=== PATIENT | male | born 1990 | race Caucasian/White ===

== ENCOUNTER 2019-12-27 15:15 | Emergency (ER) | payer OTHER, SELFPAY ==
--- NOTE | ~2019-12-27 | XR_ITS ---
EXAMINATION: XR abdomen/kub 1V DATE: 12/27/2019 18:47 INDICATION: Left flank pain. Urolithiasis. TECHNIQUE: A supine view of the abdomen on 2 radiographs was obtained. COMPARISON: CT abdomen and pelvis 12/27/2019 FINDINGS: There are no dilated loops of bowel. There is a phlebolith in left pelvis. There is a 6 mm stone in proximal left ureter. There are greater than 20 stones in right kidney measuring up to 8 mm. IMPRESSION: 1. Stones in the right kidney and proximal left ureter. Reviewed, dictated and finalized at location A.
--- NOTE | ~2019-12-27 | CT_ITS ---
EXAMINATION: CT abdomen pelvis wo con DATE: 12/27/2019 16:00 INDICATION: Left flank pain. History of kidney stones. TECHNIQUE: Computed tomography (CT) of the abdomen and pelvis was performed without intravenous contr ast. The dose-length product was 419.16 mGy-cm. Automated exposure control and iterative reconstructi on technique were employed. COMPARISON: CT dated 09/18/2007 FINDINGS: Lung bases are unremarkable. Heart size normal. No significant pleural or pericardial effus ion. There are clustered stones in the lower pole of the right kidney. No significant hydronephrosis. Ther e is an 8 mm proximal left ureteral stone with mild-moderate hydronephrosis. There is a punctate 1-2 mm nonobstructing left renal stone. Small fat-containing umbilical hernia. There is a fat-containing left inguinal hernia. No lymphadenopathy. No significant vascular abnormality. The liver, spleen, pancreas, adrenal glands are unremarkable. No free air or free fluid. Bowel patter n is nonobstructive. No abnormal pelvic masses or fluid collections. No acute osseous abnormality. IMPRESSION: 1. 8 mm proximal left ureteral stone with mild-moderate hydronephrosis. 2: Bilateral nephrolithiasis. Reviewed, dictated and finalized at location A.
[2019-12-27 15:31] VITALS: BP 144/94; PULSE 93; RESP 18; TEMP 36.6; O2SAT 98
[2019-12-27 15:34] LABS: Basophils Absolute Auto 0.1 K/mm3 (0.0-0.1); Basophils Percent Auto 0.4 % (0.2-1.2); Eosinophils Percent Auto 0.1 % (0-4.4); Hemoglobin 15.5 g/dL (14.0-18.0); Immature Granulocyte Absolute 0.07 K/mm3 (0.00-0.031); Immature Granulocyte Percent A 0.4 % (0-0.5); Lymphocytes Absolute Auto 1.09 K/mm3 (0.9-3.2); Lymphocytes Percent Auto 6.4 % (18.3-44.2); Mean Corpuscular HGB Conc 33.7 g/dl (32-36); Mean Corpuscular Hemoglobin 30.2 pg (26-34); Mean Corpuscular Volume 89.5 fl (80-100); Mean Platelet Volume 9.9 fl (7.4-10.4); Monocytes Absolute Auto 0.8 K/mm3 (0.1-0.6); Monocytes Percent Auto 4.9 % (2.6-8.5); Neutrophils Absolute Auto 14.9 K/mm3 (1.3-6.7); Neutrophils Percent Auto 87.8 % (45.5-73.1); Platelet Count Result 348 k/mm3 (150-375); Red Blood Count 5.14 M/mm3 (4.6-6.20); Red Cell Distribution Width 12.5 % (11.5-14.5); White Blood Count 16.9 K/mm3 (4.5-10.0)
[2019-12-27 15:46] LABS: Alanine Aminotransferase 21 U/L (4-50); Albumin Level 4.9 g/dL (3.5-5.1); Alkaline Phosphatase 79 U/L (38-126); Aspartate Amino Transferase 25 U/L (17-59); Bilirubin,Total 0.7 mg/dL (0.2-1.3); Blood Urea Nitrogen 9 mg/dL (9-20); Calcium 9.6 mg/dL (8.4-10.2); Carbon Dioxide 26 mmol/L (22-30); Chloride 100 mmol/L (98-107); Estimated CRCL calculation 98 ml/min; Estimated Glomerular Filt Rate > 60; Glucose 116 mg/dL (75-110); Lipase 42 U/L (23-300); Potassium 4.1 mmol/L (3.4-5.0); Sodium 137 mmol/L (137-145)
[2019-12-27] MEDS: SODIUM CHLORIDE 0.9% IV 1,000 ML 999 ML IV CONT (15:48)
[2019-12-27] MEDS: ONDANSETRON INJ 4 MG/2 ML VIAL IV PUSH (15:49)
[2019-12-27] MEDS: MORPHINE SULFATE 4 MG/ML INJ IV PUSH (15:49)
--- NOTE | 2019-12-27 15:50 | ED.ABDPAIN ---
HPI - Abdominal Pain General Chief Complaint: Abdominal Pain Stated Complaint: left lower abd pain/hx of kidney stones Time Seen by Provider: 12/27/19 15:28 Source: patient Mode of arrival: ambulatory Limitations: no limitations History of Present Illness HPI narrative: This is a 29 year old male that presents to the ER for left sided flank pain since yesterday. Reports the pain is constant and sharp. Reports he has also had some trouble urinating. Also reports some nausea and vomiting. Reports a history of kidney stones. Denies fever, diarrhea, dysuria or hematuria. Related Data Home Medications Medication Instructions Recorded Confirmed omeprazole 40 mg PO DAILY 08/30/19 Allergies Allergy/AdvReac Type Severity Reaction Status Date / Time No Known Allergies Allergy Unknown Verified 08/30/19 02:01 Review of Systems Review of Systems: Narrative: CONSTITUTIONAL: Denies fever GASTROINTESTINAL: Reports abdominal pain, nausea, vomiting. Denies diarrhea. GENITOURINARY: Denies dysuria or hematuria. All systems reviewed & are unremarkable except as noted in HPI and below PMFSH Past Medical History Medical History (Updated 12/27/19 @ 18:33 by Lili Cruz PA-C) Asthma History of esophageal stricture Kidney stones Surgical History Surgical History (Updated 08/30/19 @ 02:11 by Tommy Bhardwaj) History of esophageal surgery repair of esophageal stricture Hx of appendectomy Social History Social History (Updated 08/30/19 @ 02:11 by Tommy Bhardwaj) Smoking status: Former smoker Gender identity (if verbalized by the patient): Male Exam Narrative: Exam Narrative: GENERAL: Well-appearing, well-nourished, and in mild acute distress due to pain HEAD: Normocephalic, atraumatic. EYES: EOMI. ENT: Nares clear, no rhinorrhea or epistaxis. Mucous membranes moist. Oropharynx without tonsillar hypertrophy exudate or other lesions. Bilateral TMs pearly locke non-bulging NECK: Supple. No adenopathy or masses. No carotid bruits or JVD CHEST: Clear to auscultation. No respiratory distress. No wheezes rales or rhonchi HEART: Regular rate and rhythm. No murmur heard. Normal peripheral pulses. ABDOMEN: Soft, nondistended, normal active bowel sounds. Mild tenderness to palpation of the left side of abdomen, without guarding. Left sided CVA tenderness EXTREMITIES: Normal range of motion. No edema. SKIN: Warm, dry, no rash. NEURO: No focal deficits. Alert and oriented x3. PSYCH: Normal mood and affect Course Consultations Consultation #1: Spoke with urology about patient work-up will follow-up for lithotripsy on Wednesday. Patient will be sent home with pain control and antibiotics Date: 12/27/19 Time: 18:35 Vital Signs Vital signs: Vital Signs Temperature 97.8 F 12/27/19 15:31 Pulse Rate 93 12/27/19 15:31 Respiratory Rate 18 12/27/19 15:31 Blood Pressure 144/94 H 12/27/19 15:31 Pulse Oximetry 98 12/27/19 15:31 Temperature 97.8 F 12/27/19 15:31 Pulse Rate 93 12/27/19 15:31 Respiratory Rate 18 12/27/19 15:31 Blood Pressure 144/94 H 12/27/19 15:31 Pulse Oximetry 98 12/27/19 15:31 MDM - Abdominal Pain MDM Narrative Medical decision making narrative: Patient presents to the emergency department for left flank pain since yesterday. He is afebrile and nontoxic-appearing. Leukocytosis on CBC to 16.9. Metabolic panel is without acute changes. UA with 11-20 red cells and 10-[address] abdomen pelvis shows an 8 mm proximal left ureteral stone with mild to moderate hydronephrosis. Spoke with urology about patient and work-up. Gave patient the option of going home with pain control and lithotripsy Wednesday or standing for pain control and stent placement. Patient would like to go home and get lithotripsy done outpatient. Patient will be sent home on oral antibiotics. He was given a dose of IV antibiotic in the ED. He was given warnings to return to the ER. Patient is to follow-u
--- NOTE | 2019-12-27 15:56 | PC.NURSE ---
ANDIE Cruz aware that patient has been unable to void for sample, verbal order to left IV fluids infuse and continue trying.
--- NOTE | 2019-12-27 16:31 | PC.NURSE ---
Patient's bladder scan showed 74 ml, Anthony CHAVES aware. Will continue to monitor.
[2019-12-27] MEDS: HYDROMORPHONE HCL 1 MG/ML INJ 0.5 MG IV PUSH (17:35)
[2019-12-27 17:46] LABS: Add Urine Microscopic? YES; Appearance Urine Clear (Clear); Bilirubin Urine Negative (Negative); Blood Urine 2+ (Negative); Calcium Oxalate Crystals Urine Present /hpf; Color Urine Yellow (Yellow); Glucose Urine UA Negative (Negative); Ketones Urine 1+ mg/dL (Negative); Leukocyte Esterase Ur Negative LEU/UL (Negative); Mucus Urine Heavy /lpf; Nitrate Urine Negative (Negative); Protein Urine Negative (Negative); Specific Grav Ur 1.019 (1.001-1.035); Squamous Epithelial Cell Urine Rare /hpf (Few); Urobilinogen Urine Negative mg/dL (<2.0)
[2019-12-27] MEDS: SODIUM CHLORIDE 0.9% IV 50 ML 100 ML (17:55)
[2019-12-27 19:20] VITALS: BP 142/97; PULSE 101; RESP 16; O2SAT 96
--- NOTE | 2019-12-27 19:20 | PC.NURSE ---
Patient nauseated and diaphoretic following antibiotic. ANDIE Cruz aware, will come to see patient.
[2019-12-27 20:05] VITALS: BP 129/90; PULSE 84; RESP 16; TEMP 36.3; O2SAT 99
== END 2019-12-27 20:08 | disposition home or self-care (01) ==
PROVIDERS: Emergency Medicine; Emergency Provider Emergency Medicine
DX: N13.2 Hydronephrosis with renal and ureteral calculous obstruction (principal); J45.909 Unspecified asthma, uncomplicated; Z87.442 Personal history of urinary calculi
CPT/HCPCS: 36415; 74018; 74176; 80053; 81001; 83690; 85025; 87086; 87088; 96361; 96365; 96367; 96375; 99284; J0131; J0696; J1170; J2270; J2405; J7030

== ENCOUNTER 2019-12-29 00:35 | Day surgery (SDC) | payer OTHER, SELFPAY ==
[2019-12-28 15:31] VITALS: BMI 35.9
[2019-12-29] VITALS (8 sets, daily range): BP systolic 122–158; BP diastolic 84–97; PULSE 73–102; RESP 16–22; TEMP 36.7–37.2; O2SAT 94–100
--- NOTE | ~2019-12-29 | XR_ITS ---
XR abdomen/kub 1V DATE: 12/29/2019 11:32 INDICATION: Left ureteral calcified calculus TECHNIQUE: AP projection, 2 views COMPARISON: 12/27/2019 KUB 12/27/[address] abdomen pelvis FINDINGS: There is an asymmetric approximately 5 mm calcific density superimposing the left side of t he mid to lower sacrum, which likely represents the calcified left ureteral stone that was previously present and no longer seen in the proximal left ureter on 12/27/2019. IMPRESSION: Distal left ureteral calcified calculus Reviewed, dictated and finalized at Location [facility]. Reviewed, dictated and finalized at location A.
[2019-12-29] MEDS: LACTATED RINGERS 1,000 ML 30 ML IV CONT ×2 (12:15→15:37)
[2019-12-29 12:35] LABS: Prothrombin Time 12.6 Seconds (11.1-14.7)
[2019-12-29 12:36] LABS: Partial Thromboplastin Time 27.3 SECONDS (22.3-36.8)
--- NOTE | 2019-12-29 13:28 | PM.HPGS ---
History of Present Illness History of Present Illness Consent: Risks, benefits, and alternatives have been discussed and questions answered. Patient agrees to proceed with procedure. Chief complaint: left kidney stone Narrative: Amish Hussein is a 29 year old male who has no prior significant urological history, presenting to the ER 2 days ago with acute left renal colic. He reported nausea vomiting but no fevers chills or gross hematuria. CT imaging revealed an 8 millimeter left proximal ureteral stone. Additionally has chronic calcifications in the parenchyma of his right kidney, not truly demonstrating urolithiasis. These right kidney findings are unchanged since 2006. He presents now for definitive left ureteral ESWL. Review of Systems Constitutional: Constitutional: Denies chills, Denies fatigue, Denies fever(s) and Denies headache(s) Eyes: Eyes: Denies blurry vision ENT: Denies vertigo, Denies dizziness, Denies headache(s) and Denies sore throat Cardiovascular: Cardiovascular: Denies chest pain, Denies syncope, Denies lightheadedness, Denies palpitations, Denies dyspnea and Denies dyspnea on exertion Respiratory: Respiratory: Denies hemoptysis, Denies dyspnea and Denies dyspnea on exertion Gastrointestinal: Gastrointestinal: Denies melena, Denies bloating, Denies hematochezia, Denies change in bowel habits, Denies change in stool character, Denies constipation, Denies diarrhea and Denies vomiting Genitourinary: Genitourinary: Denies hematuria, Denies dysuria, Denies testicular pain, Denies urinary frequency, Denies urinary hesitancy and Denies urinary urgency Integumentary/Breasts: Skin/Breast: Denies pruritus, Denies lesions and Denies rash Neurologic: Denies confusion, Denies vertigo, Denies dizziness, Denies syncope and Denies headache(s) Psychiatric: Psychiatric: Denies anxiety, Denies change in appetite and Denies confusion Endocrine: Endocrine: Denies fatigue and Denies palpitations PMFSH Past Medical History Medical History Asthma History of esophageal stricture Kidney stones Surgical History Surgical History History of esophageal surgery repair of esophageal stricture Hx of appendectomy Social History Social History Smoking status: Former smoker Gender identity (if verbalized by the patient): Male Meds Home Medications and Allergies Home Medications Medication Instructions Recorded Confirmed Type omeprazole 40 mg PO DAILY 08/30/19 12/29/19 History ciprofloxacin HCl 500 mg PO Q12H 5 Days #10 tablet 12/27/19 12/29/19 Rx hydrocodone-acetaminophen [[place]] 1 tablet PO Q6H PRN #14 tablet 12/27/19 12/29/19 Rx Allergies Allergy/AdvReac Type Severity Reaction Status Date / Time No Known Allergies Allergy Unknown Verified 12/28/19 15:31 Vital Signs Vital Signs - 24 hr 12/29/19 12:15 Temperature 98.0 F Pulse Rate 81 Respiratory Rate 18 Blood Pressure 138/85 Pulse Oximetry 100 Exam Const: General: healthy appearing, comfortable, no acute distress and well developed; No confusion Nutritional Appearance: well nourished Orientation/consciousness: patient oriented x3 and No confusion HENMT: Head: normocephalic and atraumatic Ears: external ears normal Face and sinus: normal facial exam Mouth: Yes lip normal Teeth and gingiva: dentition normal Eyes: General: appearance normal, both eyes and all related structures Alignment and Position: alignment normal Eyelids: eyelids normal Cornea: corneas normal Pupils: Equal, round and reactive pupils present EOM: EOMs intact bilaterally Neck: Neck: normal visual inspection, full ROM and no JVD Chest: Chest palpation & inspection: normal inspection of the chest Resp: Effort & Inspection: normal respiratory effort and no use of accessory muscles Auscultation: lela
--- NOTE | 2019-12-29 13:53 | P.PNAN_ITS ---
Anes - Initial Pre Proc Eval Procedure: Operation Date: 12/29/19 13:15 Proposed Procedures p Left Extracorporeal Shock Wave Lithotripsy - Dev Coronado MD Date/Time: 12/29/19 13:53 Surgeon: Dev Coronado MD Pre Op Diagnosis: left kidney stone Patient Data Age: 29 Gender: M Height: 1.78 m Weight: 113.4 kg Last Vital Signs Temp 36.7 C 12/29/19 12:15 Pulse 81 12/29/19 12:15 Resp 18 12/29/19 12:15 BP 138/85 12/29/19 12:15 Pulse Ox 100 12/29/19 12:15 Allergies Allergy/AdvReac Type Severity Reaction Status Date / Time No Known Allergies Allergy Unknown Verified 12/28/19 15:31 Home Medications Medication Instructions Recorded Confirmed Type omeprazole 40 mg PO DAILY 08/30/19 12/29/19 History ciprofloxacin HCl 500 mg PO Q12H 5 Days #10 tablet 12/27/19 12/29/19 Rx hydrocodone-acetaminophen [[place]] 1 tablet PO Q6H PRN #14 tablet 12/27/19 12/29/19 Rx Laboratory Tests 12/29/19 12:06 PT 12.6 Seconds Seconds (11.1-14.7) INR 1.0 APTT 27.3 SECONDS SECONDS (22.3-36.8) Patient hx anesthesia problems: none Family hx anesthesia problems: none PMFSH Past Medical History Medical History (Updated 12/29/19 @ 13:54 by Juan Manuel Mondragon MD) Asthma History of esophageal stricture Kidney stones Obesity Surgical History Surgical History History of esophageal surgery repair of esophageal stricture Hx of appendectomy Social History Social History Smoking status: Former smoker Gender identity (if verbalized by the patient): Male Anes - Eval Final PreProcedure Day of Procedure 12/29/19 13:53 Patient weight: obese Heart: regular rate and rhythm Lungs: clear to auscultation and normal air movement Airway: Mallampati scale class II Neurological: alert and oriented Last oral intake: >/= 8 hours ASA classification: III Emergent: no Anesthetic plan: proceed Anesthesia type and monitoring: general LMA Informed Consent: The patient's anesthetic plan and its attendant risks and benefits were discussed with the patient/family/POA. Questions were solicited and answers provided to the satisfaction of the patient/family/POA.
--- NOTE | 2019-12-29 14:21 | PM.PROC ---
Procedure Note - Detailed Date of procedure: 12/29/19 Pre-op diagnosis: left kidney stone Post-op diagnosis: same Procedure performed: Left ESWL Description of procedure: The patient was brought to the operative suite where he was placed in the supine position on the Dornier lithotripsy table. The focal point of the lithotripter was placed at an 8mm left mid-ureteral calculus. A total of 3000 shocks were delivered at a power setting of 8. There appeared to be good fragmentation of the stone. The patient tolerated the procedure well and was taken to the recovery room in good condition. Anesthesia: GLMA Surgeon: Dev Coronado MD Estimated blood loss (mL): 0 Drains: No Packing: No Pathology: none sent Complications: No immediate complications Condition: stable Disposition: PACU
--- NOTE | 2019-12-29 15:20 | SUR.OPER ---
EBL:0CC
--- NOTE | 2019-12-29 17:04 | SUR.PHASEII ---
1700; CALLED PT'S FATHER TO RETURN TO HOSPITAL.
== END 2019-12-29 17:33 | disposition home or self-care (01) ==
PROVIDERS: Visit Provider Urology
PROC: (CPT 50590; principal; 2019-12-29 13:15)
DX: N20.1 Calculus of ureter (principal); J45.909 Unspecified asthma, uncomplicated; E66.9 Obesity, unspecified; Z68.35 Body mass index [BMI] 35.0-35.9, adult
CPT/HCPCS: 50590; 36415; 74018; 85610; 85730; A9270; J1100; J2405; J2704; J3010; J7120

== ENCOUNTER → 2020-01-09 10:53 | Outpatient (CLI) | payer OTHER, SELFPAY ==
--- NOTE | ~2020-01-09 | XR_ITS ---
EXAMINATION: XR abdomen/kub 1V DATE: 01/09/2020 11:05 INDICATION: Left ureteral stone. TECHNIQUE: A supine view of the abdomen on 2 radiographs was obtained. COMPARISON: CT abdomen and pelvis 12/27/2019 FINDINGS: There are no dilated loops of bowel. There are greater than 20 stones in right kidney measu ring up to 8 mm. There is a phlebolith in left pelvis. There is a 5 mm density overlying the sacrum o n the left. IMPRESSION: 1. 5 mm density overlying the sacrum on the left that may be a stone in the distal ureter. 2. Right kidney stones. Reviewed, dictated and finalized at location A. IMPRESSION: 1. 5 mm density overlying the sacrum on the left that may be a stone in the dis yolie ureter. 2. Right kidney stones.
== END ==
PROVIDERS: Visit Provider Urology
DX: N20.2 Calculus of kidney with calculus of ureter (principal)
CPT/HCPCS: 74018

== ENCOUNTER 2020-01-26 11:04 | Outpatient (CLI) | payer OTHER, SELFPAY ==
--- NOTE | ~2020-01-26 | XR_ITS ---
EXAMINATION: XR abdomen/kub 1V INDICATION: Left ureteral stone TECHNIQUE: Supine views of the abdomen were obtained on 2 radiographs. COMPARISON: 01/09/2020 FINDINGS: The previously described 5 mm density projecting over the left sacrum is not definitely aníbal ntified. There are greater than 20 stones in the right kidney which measure up to 8 mm. A phlebolith is noted in the left pelvis. The bowel gas pattern is normal. There are no dilated loops of bowel. IMPRESSION: 1. Previously described 5 mm density projecting over the sacrum no longer identified. 2. Right nephrolithiasis. Reviewed, dictated and finalized at location A. IMPRESSION: 1. Previously described 5 mm density projecting over the sacrum no longer ident ified. 2. Right nephrolithiasis.
== END 2020-01-26 11:05 | disposition home or self-care (01) ==
LOC: ANHIMG 11:11
PROVIDERS: Visit Provider Urology
DX: N20.1 Calculus of ureter (principal)
CPT/HCPCS: 74018

== ENCOUNTER 2020-05-09 05:00 | Emergency (ER) | payer OTHER, SELFPAY ==
--- NOTE | ~2020-05-09 | XR_ITS ---
EXAMINATION: XR ankle LT min 3V DATE: 05/09/2020 06:31 INDICATION: Left ankle pain TECHNIQUE: Anteroposterior, lateral, mortise, and additional oblique view of the ankle were obtained. COMPARISON: None. FINDINGS: A subtle linear heterotopic ossification is seen at the inferior aspect of the distal fibul a. Bone alignment is normal. There is lateral ankle soft tissue swelling. IMPRESSION: 1. Subtle linear heterotopic ossification at the inferior aspect of the distal fibula which could ref lect avulsion injury. Reviewed, dictated and finalized at location A. IMPRESSION: 1. Subtle linear heterotopic ossification at the inferior aspect of the distal fibula which could reflect avulsion injury.
[2020-05-09 05:03] VITALS: BP 146/100; PULSE 91; RESP 20; TEMP 37; O2SAT 97
--- NOTE | 2020-05-09 05:05 | ED.LOWEXIN ---
HPI - Extremity Injury (Lower) General Chief Complaint: Extremity Injury, Lower Stated Complaint: foot pain Time Seen by Provider: 05/09/20 05:01 History of Present Illness HPI Narrative: Left foot got stuck between 2 pieces of metal and twisted. He heard a pop and had immediate pain and swelling over the lateral maleolus. He is able to bear weight on his toes. No wound, weakness, numbness. Related Data Home Medications Medication Instructions Recorded Confirmed omeprazole 40 mg PO DAILY 08/30/19 12/29/19 Allergies Allergy/AdvReac Type Severity Reaction Status Date / Time No Known Allergies Allergy Unknown Verified 12/28/19 15:31 Review of Systems Review of Systems: All systems reviewed & are unremarkable except as noted in HPI and below PMFSH Past Medical History Medical History Asthma History of esophageal stricture Kidney stones Obesity Surgical History Surgical History History of esophageal surgery repair of esophageal stricture Hx of appendectomy Social History Social History Smoking status: Former smoker Gender identity (if verbalized by the patient): Male Exam Const: General: healthy appearing, no acute distress and alert Orientation/consciousness: patient oriented x3 HENMT: Head: normal to inspection Cardio: Other: 2+ left DP Skin: General skin exam: normal color Wounds: no wounds Neuro: General: patient oriented x3 and moves all extremities Speech: normal speech Extrem: Other: Swelling and tenderness over left lateral maleolus Course Vital Signs Vital signs: Vital Signs Temperature 37.0 C 05/09/20 05:03 Pulse Rate 91 05/09/20 05:03 Respiratory Rate 20 05/09/20 05:03 Blood Pressure 146/100 H 05/09/20 05:03 Pulse Oximetry 97 05/09/20 05:03 Temperature 37.0 C 05/09/20 05:03 Pulse Rate 82 05/09/20 06:09 Respiratory Rate 18 05/09/20 06:09 Blood Pressure 109/76 05/09/20 06:09 Pulse Oximetry 98 05/09/20 06:09 MDM - Extremity Injury (Lower) Differential Diagnosis Differential diagnosis: Likely ankle sprain and strain and ankle fracture Imaging Data Attestation: I personally reviewed and interpreted this imaging study as follows: My impression: No fracture or dislocation Discharge Plan Discharge Clinical Impression: Ankle sprain and strain Patient Disposition: Home, Self-Care Condition: Stable Instructions: Ankle Sprain (ED) Prescriptions: No Action omeprazole 40 mg capsule,delayed release(DR/EC) 40 mg PO DAILY RF: 0 hydrocodone-acetaminophen [[place]] 5-325 mg tablet 1 tablet PO Q6H PRN (Reason: pain) Qty: 14 RF: 0 hydrocodone-acetaminophen 5-325 mg tablet 1 - 2 tablet PO Q6H PRN (Reason: pain) Qty: 20 RF: 0 Follow-up/Referrals: PHYSICIAN,LIVESTOCK EXHIBITOR [Primary Care Provider] - Stand Alone Forms: Work/School Release IP Discharge Date/Time: 05/09/20 06:36
[2020-05-09 06:09] VITALS: BP 109/76; PULSE 82; RESP 18; O2SAT 98
[2020-05-09] MEDS: IBUPROFEN 600 MG TABLET PO (06:14)
== END 2020-05-09 06:36 | disposition home or self-care (01) ==
PROVIDERS: Emergency Provider Emergency Medicine
DX: S93.402A Sprain of unspecified ligament of left ankle, initial encounter (principal); S96.912A Strain of unspecified muscle and tendon at ankle and foot level, left foot, initial encounter; J45.909 Unspecified asthma, uncomplicated; Z87.442 Personal history of urinary calculi; E66.9 Obesity, unspecified; W23.1XXA Caught, crushed, jammed, or pinched between stationary objects, initial encounter
CPT/HCPCS: 73610; 99283; A9270

== ENCOUNTER → 2020-06-24 13:35 | Outpatient (CLI) | payer OTHER, SELFPAY ==
--- NOTE | ~2020-06-24 | XR_ITS ---
XR abdomen/kub 1V 06/24/2020 13:50 Indication: Kidney stones Procedure: KUB Comparison: CT dated 12/27/2019 and KUB dated 01/26/2020 Findings: There are multiple stones in the lower pole the right kidney. Bowel gas pattern is nonobstr uctive. There is a left pelvic phlebolith. No acute osseous abnormality. Impression: 1: Right nephrolithiasis. Reviewed, dictated and finalized at location A. Impression: 1: Right nephrolithiasis.
== END ==
PROVIDERS: Visit Provider Urology
DX: N20.0 Calculus of kidney (principal)
CPT/HCPCS: 74018

== ENCOUNTER 2020-07-26 12:02 | Emergency (ER) | payer OTHER, SELFPAY ==
--- NOTE | ~2020-07-26 | CT_ITS ---
EXAMINATION: CT brain wo con DATE: 07/26/2020 12:17 INDICATION: Facial numbness TECHNIQUE: Computed tomography (CT) of the head was performed without intravenous contrast. The dose- length product was 605.33 mGy-cm. The mA was adjusted according to patient size. Iterative reconstruc tion technique was employed. COMPARISON: None FINDINGS: No acute intracranial hemorrhage, infarction, mass or mass effect. No ventriculomegaly or m idline shift. Basilar cisterns are patent. There is mucosal thickening of the maxillary and sphenoid sinuses. Mastoids are pneumatized. No depressed skull fractures. Basilar cisterns are patent. IMPRESSION: 1. No acute intracranial abnormality. 2: Moderate sinusitis. Reviewed, dictated and finalized at location B.
[2020-07-26 12:05] VITALS: BP 129/87; PULSE 88; RESP 16; TEMP 36.4; O2SAT 98
--- NOTE | 2020-07-26 12:19 | ED.GENADULT ---
HPI - General Adult General Chief complaint: Neuro Symptoms/Deficit Stated complaint: FACIAL NUMBNESS Time Seen by Provider: 07/26/20 12:11 History of Present Illness HPI narrative: Patient is a 29-year-old male complaining of facial numbness that started this morning. Patient denies any visual or speech disturbance, facial droop, weakness, or unsteady gait. Related Data Home Medications Medication Instructions Recorded Confirmed omeprazole 40 mg PO DAILY 08/30/19 12/29/19 fluticasone propion-salmeterol INHALATION 07/26/20 [Advair Diskus] Allergies Allergy/AdvReac Type Severity Reaction Status Date / Time No Known Allergies Allergy Unknown Verified 07/26/20 12:41 Review of Systems Review of Systems: All systems reviewed & are unremarkable except as noted in HPI and below Constitutional: Constitutional: Denies body ache(s), Denies chills, Denies excessive sweating, Denies fatigue, Denies fever(s), Denies headache(s), Denies lethargy, Denies malaise, Denies weakness and Denies weight loss Eyes: Eyes: Denies blurry vision, Denies change in vision and Denies loss of vision ENT: Denies dizziness, Denies ear discharge, Denies headache(s), Denies lip swelling, Denies epistaxis, Denies nasal congestion, Denies neck pain, Denies throat swelling and Denies tongue swelling Cardiovascular: Cardiovascular: Denies chest pain, Denies chest pain at rest, Denies chest pain with activity, Denies diaphoresis, Denies rapid heart rate, Denies edema, Denies irregular heart rhythm, Denies lightheadedness, Denies palpitations, Denies dyspnea and Denies dyspnea on exertion Respiratory: Respiratory: Denies chest congestion, Denies cough, Denies hemoptysis, Denies dyspnea and Denies dyspnea on exertion Gastrointestinal: Gastrointestinal: Denies abdominal pain, Denies melena, Denies hematochezia, Denies diarrhea, Denies nausea, Denies vomiting and Denies hematemesis Musculoskeletal: Musculoskeletal: Denies abnormal gait, Denies deformity, Denies joint swelling, Denies limited range of motion and Denies neck pain Neurologic: Denies Abnormal speech present, Denies abnormal gait, Denies confusion, Denies dizziness, Denies headache(s), Denies focal weakness, Denies loss of vision, Denies Other visual disturbances, Denies Sensory deficit (Neuro) and Denies weakness Psychiatric: Psychiatric: Denies confusion, Denies depression, Denies auditory hallucinations, Denies homicidal ideation and Denies suicidal ideation Endocrine: Endocrine: Denies cold intolerance, Denies excessive sweating, Denies fatigue, Denies heat intolerance and Denies palpitations Hematologic/Lymphatic: Hematologic/Lymphatic: Denies easy bleeding and Denies easy bruising Allergic/Immunologic: Allergic/Immunologic: Denies lip swelling, Denies throat swelling and Denies tongue swelling PMFSH Past Medical History Medical History (Updated 07/26/20 @ 14:08 by Deven Madison MD) Asthma History of esophageal stricture Kidney stones Obesity Surgical History Surgical History History of esophageal surgery repair of esophageal stricture Hx of appendectomy Social History Social History Smoking status: Former smoker Gender identity (if verbalized by the patient): Male Exam Const: General: cooperative, healthy appearing, comfortable, no acute distress, well developed, alert and awake; No confusion Orientation/consciousness: oriented to person, oriented to place, oriented to time, patient oriented x3 and No confusion Limitations: no limitations HENMT: Head: normal to inspection, normocephalic and atraumatic Ears: hearing grossly normal bilaterally, TM normal on the right and TM normal on the left General nose exam: Normal external nose present, Normal nares present and No nasal discharge present Face and sinus: normal facial exam Mouth: Yes Normal oral and
[2020-07-26 12:31] VITALS: BP 118/98; PULSE 93; RESP 26; O2SAT 98
--- NOTE | 2020-07-26 12:32 | ECG_ITS ---
Measurements Intervals [place] Rate: 63 P: 21 AR: 132 QRS: -10 QRSD: 102 T: 15 QT: 384 QTc: 396 Interpretive Statements SINUS RHYTHM INCOMPLETE RIGHT BUNDLE BRANCH BLOCK LOW QRS VOLTAGE IN PRECORDIAL LEADS POSSIBLE LEFT VENTRICULAR HYPERTROPHY BASELINE WANDER- II, III, AVF, V4-V5 BORDERLINE ECG Electronically Signed On 07-26-2020 12:55:43 CDT by Lebron Barajas D.O.
[2020-07-26] MEDS: ONDANSETRON HCL ODT 4 MG TABLET PO (12:46)
[2020-07-26 12:47] VITALS: BP 113/90; PULSE 73; RESP 21; O2SAT 94
--- NOTE | 2020-07-26 12:47 | PC.NURSE ---
After labs collected pt c/o nausea, became diaphoretic, and states feel like I might pass out . Cool clothe given. Pt states this often happens after he has blood draws or IV's.
[2020-07-26 12:49] LABS: Basophils Absolute Auto 0.1 K/mm3 (0.0-0.1); Basophils Percent Auto 0.5 % (0.2-1.2); Eosinophils Absolute Auto 0.1 K/mm3 (0-0.3); Eosinophils Percent Auto 0.5 % (0-4.4); Hemoglobin 16.2 g/dL (14.0-18.0); Immature Granulocyte Absolute 0.05 K/mm3 (0.00-0.031); Immature Granulocyte Percent A 0.5 % (0-0.5); Lymphocytes Absolute Auto 1.76 K/mm3 (0.9-3.2); Lymphocytes Percent Auto 18.7 % (18.3-44.2); Mean Corpuscular HGB Conc 34.5 g/dl (32-36); Mean Corpuscular Hemoglobin 30.9 pg (26-34); Mean Corpuscular Volume 89.5 fl (80-100); Mean Platelet Volume 10.1 fl (7.4-10.4); Monocytes Absolute Auto 0.7 K/mm3 (0.1-0.6); Monocytes Percent Auto 6.9 % (2.6-8.5); Neutrophils Absolute Auto 6.8 K/mm3 (1.3-6.7); Neutrophils Percent Auto 72.9 % (45.5-73.1); Platelet Count Result 345 k/mm3 (150-375); Red Blood Count 5.25 M/mm3 (4.6-6.20); Red Cell Distribution Width 12.3 % (11.5-14.5); White Blood Count 9.4 K/mm3 (4.5-10.0)
--- NOTE | 2020-07-26 13:01 | PC.NURSE ---
Green top rejected per lab, preparing to redraw speciman.
--- NOTE | 2020-07-26 13:11 | PC.NURSE ---
additional lab draw x2 without success per fellow RN's. Pt's diaphoresis and nausea returning. Dr. Madison aware and order cancelled.
--- NOTE | 2020-07-26 13:33 | PC.NURSE ---
Dr. Madison at bedside discussing plan of care.
== END 2020-07-26 14:30 | disposition home or self-care (01) ==
PROVIDERS: Emergency Provider Emergency Medicine
DX: R20.2 Paresthesia of skin (principal); J45.909 Unspecified asthma, uncomplicated; Z87.442 Personal history of urinary calculi; E66.9 Obesity, unspecified; Z68.34 Body mass index [BMI] 34.0-34.9, adult; Z87.891 Personal history of nicotine dependence
CPT/HCPCS: 36415; 70450; 85025; 93005; 99284; A9270

== ENCOUNTER 2020-12-04 16:38 | Emergency (ER) | payer OTHER, SELFPAY ==
--- NOTE | ~2020-12-04 | XR_ITS ---
EXAMINATION: XR chest 1V portable INDICATION: Midsternal chest and throat pain after eating TECHNIQUE: Portable AP chest at 1759 hours COMPARISON: None available FINDINGS: The lungs are free of acute opacities. There is no pleural effusion or pneumothorax. The ca rdiomediastinal silhouette is normal. IMPRESSION: 1. No acute cardiopulmonary abnormality. Reviewed, dictated and finalized at location A. 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
--- NOTE | 2020-12-04 16:39 | ECG_ITS ---
Measurements Intervals [place] Rate: 100 P: 34 MT: 132 QRS: -5 QRSD: 113 T: 35 QT: 331 QTc: 428 Interpretive Statements SINUS TACHYCARDIA INCOMPLETE RIGHT BUNDLE BRANCH BLOCK VOLTAGE CRITERIA FOR LVH BORDERLINE ST-T WAVE ABNORMALITY- ANT/HIGH LAT LEADS BORDERLINE ECG Electronically Signed On 12-04-2020 18:23:08 [employer] by Lebron Barajas D.O.
[2020-12-04 17:02] VITALS: BP 147/90; PULSE 104; RESP 18; TEMP 36.4; O2SAT 97
--- NOTE | 2020-12-04 17:43 | ED.GENADULT ---
HPI - General Adult General Chief complaint: Unspecified Stated complaint: CP Time Seen by Provider: 12/04/20 17:22 Source: RN notes reviewed History of Present Illness HPI narrative: Patient presents to emergency department from home for food bolus. Patient states he is eating approximately 1300 today when he began to have pain and feeling that something was stuck in his throat. States that since that time unable to drink or tolerate his own secretions. Patient states he has a history of esophageal stricture with dilation last in [address] Morales. Denies any fevers or chills shortness of breath or any other symptoms of concern Related Data Home Medications Medication Instructions Recorded Confirmed omeprazole 40 mg PO DAILY 08/30/19 12/29/19 fluticasone propion-salmeterol INHALATION 07/26/20 [Advair Diskus] Allergies Allergy/AdvReac Type Severity Reaction Status Date / Time No Known Allergies Allergy Unknown Verified 07/26/20 12:41 Review of Systems Review of Systems: Narrative: Gen.: Denies fevers or chills ENT: Denies congestion Respiratory: Denies shortness of breath or cough CV: Reports upper chest pain GI: Denies abdominal pain nausea, emesis or diarrhea reports inability to swallow Musculoskeletal: Denies back pain or muscle pain Neuro: Denies numbness, tingling, weakness or focal weakness Skin: Denies rash Except as documented, all other systems reviewed and negative [facility] Past Medical History Medical History (Updated 12/04/20 @ 18:31 by Deven Jo DO) Asthma History of esophageal stricture Kidney stones Obesity Surgical History Surgical History History of esophageal surgery repair of esophageal stricture Hx of appendectomy Social History Social History Smoking status: Former smoker Gender identity (if verbalized by the patient): Male Exam Narrative: Exam Narrative: APPEARANCE: No acute distress, nontoxic, resting in bed EYES: EOMI HEENT: Normocephalic, atraumatic, OMM airway patent unable to tolerate own secretions RESPIRATORY: No respiratory distress Clear to auscultation bilaterally with no rhonchi wheezing or rales. CARDIOVASCULAR: Regular rate and rhythm without murmurs rubs or gallops. ABDOMINAL: Soft, nontender, nondistended, no rebound or guarding MUSCULOSKELETAl: Moves all extremities. NEURO: Awake and alert. Following commands, speech normal, no focal deficits SKIN:: Warm, dry. No rashes lesions or abrasions PSYCHIATRIC: Normal affect/mood, Course Course Emergency Course: Patient given Sprite and asked to jump up and down with passage of food bolus Discussed with patient results of workup and diagnosis. Discussed need for follow-up with primary care, proper use of medication, and reasons to return to the emergency department. Patient understands and agrees to current treatment plan patient states he is on omeprazole daily Vital Signs Vital signs: Vital Signs Temperature 97.5 F L 12/04/20 17:02 Pulse Rate 104 H 12/04/20 17:02 Respiratory Rate 18 12/04/20 17:02 Blood Pressure 147/90 H 12/04/20 17:02 Pulse Oximetry 97 12/04/20 17:02 Temperature 97.5 F L 12/04/20 17:02 Pulse Rate 104 H 12/04/20 17:02 Respiratory Rate 18 12/04/20 17:02 Blood Pressure 147/90 H 12/04/20 17:02 Pulse Oximetry 97 12/04/20 17:02 Medical Decision Making Vital Signs Vital Signs: Vital Signs Temperature 97.5 F L 12/04/20 17:02 Pulse Rate 104 H 12/04/20 17:02 Respiratory Rate 18 12/04/20 17:02 Blood Pressure 147/90 H 12/04/20 17:02 Pulse Oximetry 97 12/04/20 17:02 Temperature 97.5 F L 12/04/20 17:02 Pulse Rate 104 H 12/04/20 17:02 Respiratory Rate 18 12/04/20 17:02 Blood Pressure 147/90 H 12/04/20 17:02 Pulse Oximetry 97 12/04/20 17:02 Imaging Data Radiologist's impression: ITS Impressions [facility]
[2020-12-04 19:09] VITALS: BP 119/64; PULSE 93; RESP 16; O2SAT 97
== END 2020-12-04 19:10 | disposition home or self-care (01) ==
PROVIDERS: Emergency Provider Emergency Medicine
DX: T18.128A Food in esophagus causing other injury, initial encounter (principal); J45.909 Unspecified asthma, uncomplicated; Z87.442 Personal history of urinary calculi; E66.9 Obesity, unspecified; Z68.36 Body mass index [BMI] 36.0-36.9, adult; Z87.891 Personal history of nicotine dependence; I45.10 Unspecified right bundle-branch block; R94.31 Abnormal electrocardiogram [ECG] [EKG]
CPT/HCPCS: 71045; 93005; 99283; A9270

== ENCOUNTER 2021-10-13 15:31 | Emergency (ER) | payer OTHER, SELFPAY ==
--- NOTE | ~2021-10-13 | XR_ITS ---
EXAMINATION: XR chest 2V DATE: 10/13/2021 16:04 INDICATION: Cough and congestion TECHNIQUE: PA and lateral views of the chest are obtained. COMPARISON: 12/04/2020 FINDINGS: There are patchy airspace opacities of the right upper lobe, the right middle and lower lob es, and the lingula. There is no pleural effusion or pneumothorax. The cardiomediastinal silhouette i s normal. The visualized bones and soft tissues are unremarkable. IMPRESSION: 1. Patchy bilateral airspace opacities, likely pneumonia. Reviewed, dictated and finalized at location F. ASSISTANT
[2021-10-13 15:48] VITALS: BP 133/83; PULSE 86; RESP 18; TEMP 36.3; O2SAT 97
--- NOTE | 2021-10-13 16:02 | ED.GENADULT ---
HPI - General Adult General Chief complaint: Upper Respiratory Infection Stated complaint: Chest Congestion,Cough,Fatigue Source: patient Mode of arrival: ambulatory Limitations: no limitations History of Present Illness HPI narrative: 31 y/o male. PMHx Asthma. Presents to [facility] today with acute complaints of nasal congestion, continued cough, wheezing, as well as fatigue in the setting of active Covid 19 viral illness. Client tells me he developed a cough initially a few weeks ago in September . However, just tested positive for Covid 19 one week ago, 10/06/2021. He tells me he has had no improvements in his symptoms since September. No fever. Has had chills. No SMITH, sore throat, otalgia. Denies chest pain, palpitations, dyspnea, edema. No focal weakness. Has had fatigue. He is without additional acute c/o illness upon PE. Related Data Allergies Allergy/AdvReac Type Severity Reaction Status Date / Time No Known Allergies Allergy Unknown Verified 10/13/21 15:49 Review of Systems Review of Systems: CONSTITUTIONAL: Denies fever, chills, sweats. Positive fatigue. EYES: Denies visual changes, redness, discharge. ENT: Positive rhinorrhea, congestion. No sore throat, otalgia. CARDIOVASCULAR: Denies chest pain, palpitations, edema. RESPIRATORY: Denies dyspnea. Positive wheezing, cough GASTROINTESTINAL: Denies abdominal pain, nausea, vomiting, diarrhea. GENITOURINARY: Denies dysuria, hematuria, abnormal discharge SKIN: Denies rash or itching. MUSCULOSKELETAL: Denies acute back pain, joint pain, or myalgia. NEUROLOGIC: Denies numbness, or focal weakness. PSYCHIATRIC: Denies anxiety or depression. All systems reviewed & are unremarkable except as noted in HPI and below PMFSH Past Medical History Medical History Asthma BMI 36.0-36.9,adult Dysphagia Encounter for wellness examination in adult GERD (gastroesophageal reflux disease) History of esophageal stricture Hypersomnia Kidney stones Kidney stones Left ureteral stone Moderate persistent asthma, uncomplicated Obesity Surgical History Surgical History History of esophageal surgery repair of esophageal stricture History of lithotripsy (~2019) Hx of appendectomy Social History Social History Smoking status: Never smoker Alcohol intake: former Substance use: never Substance use type: does not use Gender identity (if verbalized by the patient): Male Exam Narrative: GENERAL: This is a well-nourished, well-developed adult, in no apparent distress. HEAD: normocephalic, atraumatic. EYES: PERRL. Sclera clear/white. EARS: External ears normal, auditory canals clear and without drainage, TMs normal. NOSE: External nose normal. Positive Rhinorrhea, no obstruction, nares patent. THROAT: Mucous membranes moist, posterior pharynx erythematous. No exudates. NECK: Neck supple, non-tender without lymphadenopathy, masses or thyromegaly. CARDIOVASCULAR: Regular rate and rhythm without murmurs, gallops, or rubs. RESPIRATORY: Upper airway Rhonchi, cleared with cough. Breath sounds equal bilaterally. No wheezes, rales. GASTROINTESTINAL: Abdomen soft, non-tender, nondistended. Bowel sounds are active. No guarding. SKIN: warm, intact with no suspicious lesions or rash, good texture and turgor. NEURO: Alert, active, and age appropriate. No focal neurologic deficits. EXTREMITIES: Negative. Course Course Level of Care: Express Care Visit Vital Signs Vital signs: Vital Signs Temperature 36.3 C L 10/13/21 15:48 Pulse Rate 86 10/13/21 15:48 Respiratory Rate 18 10/13/21 15:48 Blood Pressure 133/83 10/13/21 15:48 Pulse Oximetry 97 10/13/21 15:48 Temperature 36.3 C L 10/13/21 15:48 Pulse Rate 86 10/13/21 15:48 Respiratory Rate 18 10/13/21 15:48 Blood P
== END 2021-10-13 16:33 | disposition home or self-care (01) ==
PROVIDERS: Emergency Provider Nurse Practitioner Adult Health; PCP Family Medicine
DX: U07.1 COVID-19 (principal); J12.82 Pneumonia due to coronavirus disease 2019; J45.909 Unspecified asthma, uncomplicated; K21.9 Gastro-esophageal reflux disease without esophagitis; E66.9 Obesity, unspecified; Z68.36 Body mass index [BMI] 36.0-36.9, adult
CPT/HCPCS: 71046; 99213; G0463